=== PATIENT | male | born 1985 | race Caucasian/White ===

== ENCOUNTER 2018-02-06 14:03 | Emergency (ER) | payer OTHER ==
[2018-02-06 15:02] VITALS: BP 138/87; PULSE 98; RESP 18; TEMP 96.9
[2018-02-06] MEDS ORDERED: ACET/COD 300 MG/30 MG STARTER PACK 6 TAB BTL PO STA (15:19)
[2018-02-06] MEDS ORDERED: PENICILLIN VK 500MG STARTER 4 TAB BTL PO STA (15:21)
--- NOTE | 2018-02-06 15:22 | ED ---
General Adult HPI - General Chief complaint: Dental/Oral Stated complaint: dental pain Time Seen by Provider: 02/06/18 15:08 Source: patient, RN notes reviewed Mode of arrival: ambulatory Limitations: no limitations - History of Present Illness Initial comments: Patient is a 32-year-old male presented to the emergency room today with a chief complaint of symptoms of dental pain to the left upper jaw line. Patient does admit that symptoms started approximately 34 days ago. He states he does have 2 previously fractured teeth in this area. He states he is scheduled follow-up the dentist but is not on . Patient states is been no drainage or discharge. States there is pain and some swelling locally to the area. Patient denies any other complaints or symptoms. Patient denies any recent fever, chills, shortness of breath, chest pain, back pain, abdominal pain , nausea or vomiting, numbness or tingling, dysuria or hematuria, constipation or diarrhea, headaches or visual changes, or any other complaints. Review of Systems ROS Statement: Those systems with pertinent positive or pertinent negative responses have been documented in the HPI. ROS Other: All systems not noted in ROS Statement are negative. Past Medical History Past Medical History: No Reported History History of Any Multi-Drug Resistant Organisms: None Reported Past Surgical History: No Surgical Hx Reported Past Psychological History: Anxiety Smoking Status: Current every day smoker Past Alcohol Use History: Daily Past Drug Use History: None Reported General Exam - General Exam Comments Initial Comments: General: The patient is awake and alert, in no distress, and does not appear acutely ill. Eye: Pupils are equal, round and reactive to light, extra-ocular movements are intact. No nystagmus. There is normal conjunctiva bilaterally. No signs of icterus. Ears, nose, mouth and throat: There are moist mucous membranes and no oral lesions. He will midline. Patient swallows without difficulty. Patient does have tenderness over tooth #1314. They're fractured down to the gumline. No obvious abscess. Neck: The neck is supple, there is no tenderness or JVD. Musculoskeletal: Normal ROM, no tenderness. Strength 5/5. Sensation intact. Pulses equal bilaterally 2+. Neurological: A&O x 3. CN II-XII intact, There are no obvious motor or sensory deficits. Coordination appears grossly intact. Speech is normal. Skin: Skin is warm and dry and no rashes or lesions are noted. Psychiatric: Cooperative, appropriate mood & affect, normal judgment. Limitations: no limitations Course Vital Signs 02/06/18 14:59 Temperature 96.9 F L Pulse Rate 98 Respiratory 18 Rate Blood Pressure 138/87 O2 Sat by Pulse 98 Oximetry Medical Decision Making - Medical Decision Making Patient will be started on antibiotics and is advised to follow up with dentist. Advised return for any other concerns. Disposition Clinical Impression: Dental abscess Disposition: HOME SELF-CARE Condition: Good Instructions: Dental Abscess (ED) Additional Instructions: Please use medication as discussed. Please follow-up with dentist over the next 2-5 days. Please return to emergency room if the symptoms increase or worsen or for any other concerns. Is patient prescribed a controlled substance at d/c from ED?: No Referrals: None,Stated [Primary Care Provider] - 1-2 days Time of Disposition: 15:21
== END 2018-02-06 15:40 | disposition home or self-care (01) ==
LOC: EC 14:03
DX: K04.7 Periapical abscess without sinus (principal); S02.5XXA Fracture of tooth (traumatic), initial encounter for closed fracture; F17.200 Nicotine dependence, unspecified, uncomplicated; X58.XXXA Exposure to other specified factors, initial encounter
CPT/HCPCS: 99282

== ENCOUNTER 2018-04-29 11:29 | Emergency (ER) | payer OTHER ==
[2018-04-29 11:46] VITALS: PULSE 79; RESP 16
[2018-04-29] MEDS ORDERED: KETOROLAC 30 MG/ML 1 ML VIAL IM STA (12:10)
--- NOTE | 2018-04-29 12:11 | ED ---
Lower Extremity Injury HPI - General Chief Complaint: Extremity Injury, Lower Stated Complaint: Hip pain Time Seen by Provider: 04/29/18 12:00 Source: patient Mode of arrival: ambulatory Limitations: no limitations - History of Present Illness Initial Comments: 32-year-old male who denies past medical history presents today for right hip pain 1 week. Patient states that he has had what feels like a right hip strain located to the posterior aspect of the hip with occasional sharp shooting pain down the right leg. 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 Patient states the pain is worse with abduction, long periods of sitting and walking. Patient states his petechiae present for pain which helped minimally. Patient denies any trauma to the right hip or lumbar spine, falls, IVDU, recent weight loss, surgery on the right hip, erythema, fever, chills, night sweats, inability weight-bear, numbness, tingling, loss sensation, discoloration or pallor of the right lower extremity. When the pain persisted patient presented for evaluation.Remainder of ROS (-) patient denies any recent fever, chills, shortness of breath, chest pain, back pain, abdominal pain, nausea or vomiting, numbness or tingling, dysuria or hematuria, constipation or diarrhea, headaches or visual changes, or any other complaints. - Related Data Previous Rx's Medication Instructions Recorded Penicillin V Potassium [Pen Vee K] 500 mg PO QID #40 tablet 02/06/18 Ibuprofen [Motrin] 600 mg PO Q8HR PRN 7 Days #21 tab 04/29/18 Allergies Allergy/AdvReac Type Severity Reaction Status Date / Time aspirin Allergy Unknown Itching Verified 04/29/18 11:46 Review of Systems ROS Statement: Those systems with pertinent positive or pertinent negative responses have been documented in the HPI. ROS Other: All systems not noted in ROS Statement are negative. Constitutional: Denies: fever, chills Eyes: Denies: eye pain ENT: Denies: ear pain, throat pain Respiratory: Denies: cough, dyspnea, wheezes, hemoptysis, stridor Cardiovascular: Denies: as per HPI, chest pain, palpitations Endocrine: Denies: fatigue Gastrointestinal: Denies: abdominal pain, nausea, vomiting, diarrhea, constipation Genitourinary: Denies: urgency, dysuria, frequency, hematuria Musculoskeletal: Reports: arthralgia. Denies: back pain, joint swelling Skin: Denies: rash, lesions Neurological: Denies: headache, weakness, numbness, paresthesias Past Medical History Past Medical History: No Reported History History of Any Multi-Drug Resistant Organisms: None Reported Past Surgical History: Orthopedic Surgery Past Psychological History: Anxiety Smoking Status: Current every day smoker Past Alcohol Use History: Daily Past Drug Use History: None Reported General Exam - General Exam Comments Initial Comments: General: The patient is awake and alert, in no distress, and does not appear acutely ill. Eye: Pupils are equal, round, extra-ocular movements are intact. No nystagmus. There is normal conjunctiva bilaterally. No signs of icterus. Cardiovascular: There is a regular rate and rhythm. No murmur, rub or gallop is appreciated. Respiratory: Lungs are clear to auscultation, respirations are non-labored, breath sounds are equal. No wheezes, stridor, rales, or rhonchi. Musculoskeletal: Inspection of his bilaterally reveals no erythema, soft tissue swelling, ecchymosis equal bilateral. Insertion lumbar spine within normal lives. No tenderness to palpation midline or paravertebral lumbar spine. Mild tenderness to deep palpation of the right hip posterior aspect. Full active and passive ROM at the hips equally b/l, complains of discomfort with ROM of the right hip especially abduction. (-) log roll testing and pelvic rock testing, no no shortening or internal or external rotation of the right leg. Strength 5/5 of the hips, knees and ankle equally b/l. Sensation intact. of the LE equally b/l. DP pulses equal bilaterally 2+. Neurological: A&O x 3. CN II-XII intact, There are no obvious motor or sensory deficits. Coordination appears grossly intact. Speech is normal. Skin: Skin is warm and dry and no rashes or lesions are noted. Psychiatric: Cooperative, appropriate mood & affect, normal judgment. Limitations: no limitations Course Vital Signs 04/29/18 04/29/18 11:44 13:18 Temperature 98 F 97.9 F Pulse Rate 79 79 Respiratory 16 16 Rate Blood Pressure 124/78 138/69 O2 Sat by Pulse 98 97 Oximetry Medical Decision Making - Medical Decision Making Given patient's symptoms and history are repetitive movement including getting an out of truck I am suspicious of a piriformis syndrome especially with history of occasional sharp shooting pains indicative of a possible sciatic nerve irritation. Patient adamantly denies any lumbar spine pain or trauma. Exam of the lumbar spine unremarkable. X-ray revealed no acute fracture or signs worrisome for an avascular necrosis or dislocation. I have no suspicion for septic joint given history and physical examination findings. Patient neurovascuarly intact. Pt given toradol for pain mgmt. At this time I feel pt is stable for d/c with orthopedic surgery follow-up. Case discussed in detail with Dr. Castaneda who agreed with impression and plan. Pt d/c instable condition. Disposition Clinical Impression: Right hip pain Disposition: HOME SELF-CARE Condition: Good Instructions: Piriformis Syndrome (ED) Additional Instructions: Please use medication as discussed. Please follow-up with family doctor in the next 2 days and orthopedic surgery in the next week. Please return to emergency room if the symptoms increase or worsen or for any other concerns. Prescriptions: Ibuprofen [Motrin] 600 mg PO Q8HR PRN 7 Days #21 tab PRN Reason: Pain Is patient prescribed a controlled substance at d/c from ED?: No Referrals: None,Stated [Primary Care Provider] - 1-2 days Riley Alex MD [Medical Doctor] - 1-2 days Time of Disposition: 13:03
--- NOTE | 2018-04-29 12:24 | XR ---
Right hip HISTORY: Right hip pain 2 views of the right hip Bone mineralization is maintained. Sclerotic focus in the femoral neck likely due to bone island. Danyelle nt spaces and alignment are normal. No fracture or dislocation. Probable vascular calcification withi n the right hemipelvis. IMPRESSION: Unremarkable right hip, probable bone island. Consider hip MRI.
[2018-04-29 13:19] VITALS: BP 138/69; TEMP 97.9
== END 2018-04-29 13:18 | disposition home or self-care (01) ==
LOC: EC 11:29
DX: M25.551 Pain in right hip (principal); R23.3 Spontaneous ecchymoses; F17.200 Nicotine dependence, unspecified, uncomplicated; Z88.6 Allergy status to analgesic agent
CPT/HCPCS: 73502; 99283; 96372; J1885

== ENCOUNTER 2019-02-13 13:29 | Emergency (ER) | payer OTHER ==
[2019-02-13 14:51] LABS: Basophils % (A) 1 %; Eosinophils # (A) 0.2 k/uL (0-0.7); Eosinophils % (A) 2 %; HCT 40.2 % (39.0-53.0); HGB 13.6 gm/dL (13.0-17.5); Lymphocytes # (A) 2.5 k/uL (1.0-4.8); Lymphocytes % (A) 27 %; MCH 30.6 pg (25.0-35.0); MCHC 33.8 g/dL (31.0-37.0); MCV 90.5 fL (80.0-100.0); Mean Platelet Volume 6.4; Monocytes # (A) 0.4 k/uL (0-1.0); Monocytes % (A) 4 %; Neutrophils # (A) 5.7 k/uL (1.3-7.7); Neutrophils % (A) 63 %; Platelet Count 287 k/uL (150-450); RBC 4.44 m/uL (4.30-5.90); RDW 12.7 % (11.5-15.5)
[2019-02-13 14:59] LABS: ALT 26 U/L (21-72); AST 33 U/L (17-59); African American GFR (CKD) >90 (>60 ml/min/1.73 sqM); Albumin 4.7 g/dL (3.5-5.0); Alkaline Phosphatase 69 U/L (38-126); Anion Gap 14 mmol/L; Blood Urea Nitrogen 14 mg/dL (9-20); Calcium 9.5 mg/dL (8.4-10.2); Carbon Dioxide 20 mmol/L (22-30); Chloride 109 mmol/L (98-107); Glucose 90 mg/dL (74-99); Lipase 134 U/L (23-300); Magnesium 2.3 mg/dL (1.6-2.3); Potassium 3.5 mmol/L (3.5-5.1); Sodium 143 mmol/L (137-145); Total Bilirubin 0.3 mg/dL (0.2-1.3); Total Protein 7.7 g/dL (6.3-8.2)
[2019-02-13 15:03] LABS: D-Dimer 0.36 mg/L FEU (<0.60); INR 0.9 (<1.2); Partial Thromboplastin Time 24.6 sec (22.0-30.0); Prothrombin Time 9.5 sec (9.0-12.0)
--- NOTE | 2019-02-13 15:06 | XR ---
EXAMINATION TYPE: XR chest 2V DATE OF EXAM: 02/13/2019 COMPARISON: September 03, 2013 HISTORY: Chest pain TECHNIQUE: Frontal and lateral views of the chest are obtained. FINDINGS: There is no focal air space opacity. No evidence for pneumothorax. No pleural effusion. The cardiac silhouette size is within normal limits. The osseous structures are grossly intact. IMPRESSION: 1. No acute cardiopulmonary process.
[2019-02-13] MEDS ORDERED: IPRATROPIUM-ALBUTEROL 3 ML NEB INHALATION STA (15:08)
[2019-02-13] MEDS ORDERED: KETOROLAC 30 MG/ML 1 ML VIAL IVP STA (15:08)
--- NOTE | 2019-02-13 15:11 | ED ---
Chest Pain HPI - General Chief Complaint: Chest Pain Stated Complaint: Chest Pain X3 days Time Seen by Provider: 02/13/19 14:28 Source: patient, RN notes reviewed Mode of arrival: wheelchair Limitations: no limitations - History of Present Illness Initial Comments: This a 33-year-old male presents emergency Department chief complaint of chest pain. Patient states that he's had intermittent waxing and waning chest pain for last 3 days states sometimes it just comes and not exacerbated by anything though movement does make it worse. Patient does admit that he smokes 4-5 packs of cigarettes daily states that his been under a large amount of stress secondary to recent separation and loss of home. Patient denies any nausea vomiting diarrhea constipation patient states that he was told he had heart issues in the past when he used to abuse cocaine states that he does not use any drugs currently does not take any medications for hypertension, hyperlipidemia, diabetes. - Related Data Previous Rx's Medication Instructions Recorded Ketorolac [Toradol] 10 mg PO Q8HR #15 tab 02/13/19 Allergies Allergy/AdvReac Type Severity Reaction Status Date / Time aspirin Allergy Unknown Itching Verified 02/13/19 15:46 Review of Systems ROS Statement: Those systems with pertinent positive or pertinent negative responses have been documented in the HPI. ROS Other: All systems not noted in ROS Statement are negative. EKG Findings - EKG Comments: EKG Findings:: EKG 2014:05 normal sinus rhythm rate of 78 LA 160 QRS 90 QT/QTC 380/410 Past Medical History Past Medical History: Hypertension, Myocardial Infarction (DC) History of Any Multi-Drug Resistant Organisms: None Reported Past Surgical History: Orthopedic Surgery Past Psychological History: Anxiety Smoking Status: Current every day smoker Past Alcohol Use History: Daily Past Drug Use History: None Reported General Exam Limitations: no limitations General appearance: alert, in no apparent distress Head exam: Present: atraumatic, normocephalic, normal inspection Eye exam: Present: normal appearance, PERRL, EOMI. Absent: scleral icterus, conjunctival injection, periorbital swelling ENT exam: Present: normal exam, normal oropharynx, mucous membranes moist, TM's normal bilaterally Neck exam: Present: normal inspection, full ROM. Absent: tenderness, meningismus, lymphadenopathy Respiratory exam: Present: normal lung sounds bilaterally, chest wall tenderness. Absent: respiratory distress, wheezes, rales, rhonchi, stridor Cardiovascular Exam: Present: regular rate, normal rhythm, normal heart sounds. Absent: systolic murmur, diastolic murmur, rubs, gallop, clicks GI/Abdominal exam: Present: soft, normal bowel sounds. Absent: distended, tenderness, guarding, rebound, rigid Neurological exam: Present: alert Skin exam: Present: warm, dry, intact, normal color. Absent: rash Course Vital Signs 02/13/19 02/13/19 02/13/19 13:44 15:23 15:33 Temperature 98.0 F Pulse Rate 84 84 90 Respiratory 20 Rate Blood Pressure 153/75 O2 Sat by Pulse 100 Oximetry Chest Pain MDM - MDM 31-year-old male presented from for chest pain. Patient's chest pain is not typical chest pain. Patient's symptoms are more suggestive of costochondritis versus pleurisy. Patient did have EKG, lab work and chest x-ray which is unremarkable. Patient will be discharged return parameters were discussed. Disposition Clinical Impression: Atypical chest pain, Costochondritis, acute Disposition: HOME SELF-CARE Condition: Stable Instructions (If sedation given, give patient instructions): Costochondritis (ED), Chest Pain (ED) Additional Instructions: Please return to the Emergency Department if symptoms worsen or any other concerns. Prescriptions: Ketorolac [Toradol] 10 mg PO Q8HR #15 tab Is patient prescribed a controlled substance at d/c from ED?: No Referrals: None,Stated [Primary Care Provider] - 1-2 days Time of Disposition: 15:57
[2019-02-13 16:18] VITALS: BP 138/70; PULSE 78; RESP 16; TEMP 98.7
== END 2019-02-13 16:17 | disposition home or self-care (01) ==
LOC: EC 13:29
DX: M94.0 Chondrocostal junction syndrome [Tietze] (principal); I25.2 Old myocardial infarction; F17.210 Nicotine dependence, cigarettes, uncomplicated; Z88.6 Allergy status to analgesic agent
CPT/HCPCS: 36415; 94640; 93005; 85379; 80053; 83690; 83735; 84484; 85025; 85610; 85730; 71046; 99285; 96374; J1885

== ENCOUNTER 2023-07-25 16:24 | Emergency (ER) | payer OTHER ==
[2023-07-25] MEDS ORDERED: methylPREDNISolone SOD SUCCI 125 MG/2 ML VIAL IM ONE (17:01)
[2023-07-25] MEDS ORDERED: IPRATROPIUM-ALBUTEROL 3 ML NEB INHALATION STA (17:01)
--- NOTE | 2023-07-25 17:22 | XR ---
EXAMINATION TYPE: XR chest 2V DATE OF EXAM: 07/25/2023 5:10 PM CLINICAL INDICATION:Male, 38 years old with history of Cough/pain; [facility] COMPARISON: 02/13/2019. TECHNIQUE: XR chest 2V Frontal and lateral views of the chest. FINDINGS: Lungs/Pleura: There is no evidence of pleural effusion, focal consolidation, or pneumothorax. Pulmonary vascularity: Unremarkable. Heart/mediastinum: Cardiomediastinal silhouette is unremarkable. Musculoskeletal: No acute osseous pathology. IMPRESSION: No acute cardiopulmonary disease/process.
--- NOTE | 2023-07-25 17:38 | ED ---
URI HPI - General Chief Complaint: Upper Respiratory Infection Stated Complaint: Cough,GÓMEZ Source: patient Mode of arrival: ambulatory Limitations: no limitations - History of Present Illness Initial Comments: 38-year-old male who presents the emergency department reporting cough and congestion for the past couple of weeks. Denies productive cough. No fevers. Denies ear pain or sore throat. He went to an urgent care earlier this week who placed him on azithromycin. States he is on day 3 without any improvement in his symptoms. He is not using any other dictations including [id number] medications. He admits to smoking but no history of asthma or COPD. He denies any chest pain. Multiple sick contacts with similar symptoms. No other alleviating, Perceptin or modifying factors - Related Data Previous Rx's Medication Instructions Recorded Ketorolac [Toradol] 10 mg PO Q8HR #15 tab 02/13/19 Albuterol Inhaler [Ventolin Hfa 1 puff INHALATION QID #8 gm 07/25/23 Inhaler] Benzonatate [Tessalon Perles] 100 mg PO TID PRN #30 capsule 07/25/23 Codeine Phosphate/Guaifenesin 5 ml PO Q4HR PRN 3 Days #90 ml 07/25/23 [Codeine Phosphate/Guaifenesin 10-100 mg/5 ml] Ipratropium-Albuterol Nebulize 3 ml INHALATION QID #75 ml 07/25/23 [Duoneb 0.5 mg-3 mg/3 ml Soln] predniSONE [Deltasone] 20 mg PO BID #10 tab 07/25/23 Allergies Allergy/AdvReac Type Severity Reaction Status Date / Time aspirin Allergy Unknown Itching Verified 02/13/19 15:46 Review of Systems ROS Statement: Those systems with pertinent positive or pertinent negative responses have been documented in the HPI. ROS Other: All systems not noted in ROS Statement are negative. Past Medical History Past Medical History: Hypertension, Myocardial Infarction (ID) History of Any Multi-Drug Resistant Organisms: None Reported Past Surgical History: Orthopedic Surgery Past Psychological History: Anxiety Past Alcohol Use History: Daily Past Drug Use History: None Reported General Exam Limitations: no limitations General appearance: alert, in no apparent distress Head exam: Present: atraumatic, normocephalic, normal inspection Eye exam: Present: normal appearance, PERRL, EOMI. Absent: scleral icterus, conjunctival injection, periorbital swelling ENT exam: Present: normal exam, mucous membranes moist Neck exam: Present: normal inspection. Absent: tenderness, meningismus, lymphadenopathy Respiratory exam: Present: wheezes. Absent: respiratory distress, rales, rhonchi, stridor Cardiovascular Exam: Present: regular rate, normal rhythm, normal heart sounds. Absent: systolic murmur, diastolic murmur, rubs, gallop, clicks GI/Abdominal exam: Present: soft, normal bowel sounds. Absent: distended, tenderness, guarding, rebound, rigid Extremities exam: Present: normal inspection, full ROM, normal capillary refill. Absent: tenderness, pedal edema, joint swelling, calf tenderness Back exam: Present: normal inspection Neurological exam: Present: alert, oriented X3, CN II-XII intact Psychiatric exam: Present: normal affect, normal mood Skin exam: Present: warm, dry, intact, normal color. Absent: rash Course Vital Signs 07/25/23 07/25/23 07/25/23 16:26 16:57 17:31 Temperature 98.2 F Pulse Rate 88 88 Respiratory 16 18 Rate Blood Pressure 154/68 O2 Sat by Pulse 96 Oximetry 07/25/23 07/25/23 17:42 18:08 Temperature 97.9 F Pulse Rate 88 86 Respiratory 20 Rate Blood Pressure 151/92 O2 Sat by Pulse 96 Oximetry Medical Decision Making - Medical Decision Making Was pt. sent in by a medical professional or institution (KEARA Myles, ELECTROPHONIC ENGINEER, urgent care, hospital, or [facility]...) When possible be specific @ -No Did you speak to anyone other than the patient for history (EMS, parent, family, police, friend...)? What history was obtained from this source @ -No Did you review nursing and triage notes (agree or disagree)? Why? @ -I reviewed and agree with nursing and triage notes Were old charts reviewed (outside hosp., previous admission, EMS record, old EKG, old radiological studies, urgent care reports/EKG's, [facility] records)? Report findings @ -No old charts were reviewed Differential Diagnosis (chest pain, altered mental status, abdominal pain women, abdominal pain men, vaginal bleeding, weakness, fever, dyspnea, syncope, headache, dizziness, GI bleed, back pain, seizure, CVA, palpatations, mental health, musculoskeletal)? @ -Differential Pneumonia, viral URI, endocarditis, myocarditis, pericarditis, otitis, sinusitis, peritonsillar Abscess, retropharyngeal Abscess, epiglottitis, peritonitis, appendicitis, Judy cystitis, diverticulitis, hepatitis, colitis, UTI, PID, TOA, pyelonephritis, prostatitis, epididymitis, meningitis, encephalitis, pulmonary embolism, CVA, thyroid storm, pancreatitis, adrenal crisis, cavernous sinus thrombosis, this is not meant to be an all-inclusive list. EKG interpreted by me (3pts min.). @ -Not done X-rays interpreted by me (1pt min.). @ -No acute process CT interpreted by me (1pt min.). @ -None done U/S interpreted by me (1pt. min.). @ -None done What testing was considered but not performed or refused? (CT, X-rays, U/S, labs)? Why? @ -None What meds were considered but not given or refused? Why? @ -None Did you discuss the management of the patient with other professionals (professionals i.e. , PA, ELECTROPHONIC ENGINEER, lab, RT, psych nurse, hospice social worker, windsurfing instructor, teacher, benefits officer, showcase maker)? Give summary @ -No Was smoking cessation discussed for >3mins.? @ -No Was critical care preformed (if so, how long)? @ -No Were there social determinants of health that impacted care today? How? (Homele ssness, low income, unemployed, alcoholism, drug addiction, transportation, low edu. Level, literacy, decrease access to med. care, fpc, rehab)? @ -No Was there de-escalation of care discussed even if they declined (Discuss DNR or withdrawal of care, Hospice)? DNR status @ -No What co-morbidities impacted this encounter? (DM, HTN, Smoking, COPD, CAD, Cancer, CVA, ARF, Chemo, Hep., AIDS, mental health diagnosis, sleep apnea, morbid obesity)? @ -None Was patient admitted / discharged? Hospital course, mention meds given and route, prescriptions, significant lab abnormalities, going to OR and other pertinent info. @ -Discharged. Upon arrival patient placed into room 12. Offered repeat viral testing however patient refused. He was given 125 mg of Solu-Medrol IM as he states he has issues swallowing pills. He was also given a duoneb breathing treatment. Chest x-ray was performed. Results discussed with the patient. Will be discharged home on prednisone, albuterol inhaler, Tessalon Perles and codeine cough syrup. Instructed to take the medications as directed. Follow up with his doctor and return for any new or worsening symptoms. Patient agreeable and was discharged in stable condition Undiagnosed new problem with uncertain prognosis? @ -No Drug Therapy requiring intensive monitoring for toxicity (Heparin, Nitro, Insulin, Cardizem)? @ -No Were any procedures done? @ -No Diagnosis/symptom? @ -Acute reactive airway disease, likely viral syndrome Acute, or Chronic, or Acute on Chronic? @ -Acute Uncomplicated (without systemic symptoms) or Complicated (systemic symptoms)? @ -complicated Side effects of treatment? @ -No Exacerbation, Progression, or Severe Exacerbation? @ -No Poses a threat to life or bodily function? How? (Chest pain, [place], ID, pneumonia, PE, COPD, DKA, ARF, appy, cholecystitis, CVA, Diverticulitis, Homicidal, Suicidal, threat to staff... and all critical care pts) @ -No Disposition Clinical Impression: Bronchitis, Cough Disposition: HOME SELF-CARE Condition: Stable Instructions (If sedation given, give patient instructions): Acute Bronchitis (ED) Additional Instructions: Start taking the steroids tomorrow. You may use the breathing treatments and cough suppressants today. Follow-up with your doctor and return for any new or worsening symptoms Prescriptions: Codeine Phosphate/Guaifenesin [Codeine Phosphate/Guaifenesin 10-100 mg/5 ml] 5 ml PO Q4HR PRN 3 Days #90 ml PRN Reason: Cough predniSONE [Deltasone] 20 mg PO BID #10 tab Ipratropium-Albuterol Nebulize [Duoneb 0.5 mg-3 mg/3 ml Soln] 3 ml INHALATION QID #75 ml Benzonatate [Tessalon Perles] 100 mg PO TID PRN #30 capsule PRN Reason: Cough Albuterol Inhaler [Ventolin Hfa Inhaler] 1 puff INHALATION QID #8 gm Is patient prescribed a controlled substance at d/c from ED?: Yes When asked, does pt state using other controlled substances?: No If prescribed controlled substance>3 days was MAPS reviewed?: Prescribed <3 Days If opioid is for acute pain is fill amount 7 days or less?: Yes Referrals: Richie Mccauley MD [Primary Care Provider] - 1-2 days Time of Disposition: 17:53
[2023-07-25 18:21] VITALS: BP 151/92; PULSE 86; RESP 20; TEMP 97.9
== END 2023-07-25 18:08 | disposition home or self-care (01) ==
LOC: EC 16:24
DX: J40 Bronchitis, not specified as acute or chronic (principal); I10 Essential (primary) hypertension; I25.2 Old myocardial infarction; F17.200 Nicotine dependence, unspecified, uncomplicated; Z88.6 Allergy status to analgesic agent; Z86.59 Personal history of other mental and behavioral disorders
CPT/HCPCS: 94640; 71046; 99284; 96372; J2930